=== PATIENT | female | born 1965 | race Caucasian/White ===

== ENCOUNTER 2024-03-14 19:35 | Outpatient (CLI) | payer OTHER, SELFPAY ==
--- NOTE | 2024-03-28 13:41 | W.PM.SLEEP ---
Sleep Study Details Details Interpreting Provider: Facundo Date of Sleep Study: 03/14/24 Sleep Study Details: STUDY TYPE:? Home unattended ? BMI:? Not recorded ORDERING PROVIDER:Uriel Loredo INDICATION:? Concern about sleep apnea ? SLEEP SUMMARY:? 424 minutes monitored RESPIRATORY SUMMARY:? AHI 10.5, supine 11.6, right lateral 2.5 Low oxygen 81 34.4% of study oxygen less than 90% Snoring 40.5% PERIODIC LIMB MOVEMENTS OF SLEEP:? Not record CARDIAC:? Range 64-92, mean 74.5 beats per minute IMPRESSION:? Mild obstructive sleep apnea with supine position dependency RECOMMENDATION: Treatment options include CPAP, positional therapy, dental appliance and possibly weight loss if indicated
== END 2024-03-14 19:36 | disposition home or self-care (01) ==
LOC: SLEEP 19:40
PROVIDERS: Visit Provider Otolaryngology
DX: G47.33 Obstructive sleep apnea (adult) (pediatric) (principal)
CPT/HCPCS: 95806